=== PATIENT | female | born 1930 | race Caucasian/White ===

== ENCOUNTER 2016-07-15 18:28 | Inpatient (IN) | payer MEDICARE, BC ==
[~2016-07-15] VITALS: Ht 154.9 cm; Wt 61.8 kg
[~2016-07-15 18:28] MED LIST: (None)250 MG OR; AMLODIPINE10 MG PO; AMLODIPINE5 MG OR; AMOXICILLIN500 MG PO; ANTIVERT PO; ATENOLOL50 MG PO; B-12 TR1000 MCG OR; B-6100 MG OR; BABY ASPIRIN81 MG OR; BABY ASPIRIN81 MG PO; BACTRIM DS1 TAB OR; BENADRYL 25MG C25 MG PO; CA CITRATE OR; CARAFATE OR; CARVEDILOL6.25 MG PO; CIPROFLOXACN500 MG OR; D3400 UNIT PO; DARVOCET N-100100 - OR; DIOVAN160 MG PO; DIOVAN40 MG OR; DIOVAN80 MG PO; E 10001000 UNIT OR; EXFORGE1 TA1 OR; FLAGYL500 MG OR; FLORASTOR250 M1 OR; FOLIC ACID400 MC1 OR; GAS-X EXTRA ST125 MG PO; GLYCRON3 MG OR; HUMULIN R1 M1 IV; HYDROCO/APAP1 TA9 OR; KEFLEX500 MG OR; KEFLEX500 MG PO; KLOR-CON 1010 ME1 OR; LASIX 20 MG TAB20 MG PO; LASIX 20 MG20 MG/TAB PO; LASIX 40 MG TAB40 MG PO; LORTAB 5 PO; MAGNESIUM250 M1 OR; MERCAPTOPUR50 MG OR; METHIMAZOLE5 MG PO; MICRO-K10 ME1 PO; MUCINEX600 MG PO; MULTIVITAM11 IV; MULTIVITAMIN OR; NEURONTIN300 MG PO; NOVOLIN R IV; OMEPRAZOLE20 MG PO; POTASSIUM; PREDNISONE10 MG OR; ROBAXIN-750750 MG OR; ROCEPHIN1 G1 IV; SANTYL250 MG/GM EX; SANTYL250 MG/GM INT; SIMVASTATIN20 MG OR; SODIUM CHLORIDE IV; TENORMIN PO; TPN IV; VANCOMYCIN HCL1 GM IV; VITAMIN B 6100 MG OR; VITAMIN C1000 MG OR; XANAX0.25 MG OR; XANAX0.25 MG PO; XANAX0.5 MG PO; [UNRECOGNIZED DRUG - OTHER] IV; [UNRECOGNIZED DRUG - OTHER] OR; [UNRECOGNIZED DRUG - OTHER] PO; [UNRECOGNIZED DRUG - SUPPLY] IV
[2016-07-15 19:40] LABS: INFLUENZA A NONE DETECTED (NONE DETECT); INFLUENZA B NONE DETECTED (NONE DETECT)
[2016-07-15] MEDS ORDERED: HYDROCO/APAP1 TA9 PO (19:42)
[2016-07-15] MEDS ORDERED: DIPHEN/ATROP2.5 MG PO (19:45)
[2016-07-15 19:50] LABS: ALBUMIN 3.3 g/dL (3.2-5.0); ALKALINE PHOSPHATASE 107 u/l (38-126); ANION GAP 17 (6-22 (CALC)); BILIRUBIN, TOTAL 0.6 mg/dL (0.0-1.4); BUN 32 mg/dL (8-23); BUN/CREATININE RATIO 30 (12-20 (CALC)); CALCIUM 8.1 mg/dL (8.4-10.2); CARBON DIOXIDE 23 mmol/l (22-30); CHLORIDE 103 mmol/l (95-108); CREATININE 1.1 mg/dL (0.5-1.0); GFR 47 ML/MIN (>=60 (CALC)); GFR FOR AFR.AMER. 57 ML/MIN (>=60 (CALC)); GLUCOSE 240 mg/dL (82-115); POTASSIUM 4.5 mmol/l (3.5-5.1); SGOT/AST 18 u/l (9-36); SGPT/ALT 29 u/l (11-66); SODIUM 139 mmol/l (137-146); TOTAL PROTEIN 6.5 g/dL (6.3-8.2)
[2016-07-15] MEDS ORDERED: LEVEMIR FL100 UNIT/M SC (19:52)
[2016-07-15 19:54] LABS: HEMATOCRIT 28.4 % (37.0-47.0); IMMATURE GRANULOCYTES 0.7 % (0.0-1.0); MEAN CELL VOLUME 101.1 fL CALC (80.0-100.0); MEAN CORPUSCULAR HGB CONC 31.7 g/L CALC (32.0-36.0); NEUT# 13.94 thou/uL (2.00-7.15); RED BLOOD COUNT 2.81 mill/uL (4.20-5.60); RED CELL DISTRI WIDTH 15.2 % (11.5-15.5)
[2016-07-15 20:01] LABS: MYOGLOBIN 38 ng/mL (0 - 62)
[2016-07-15 21:25] VITALS: BP 107/55
[2016-07-16 03:50] VITALS: BP 124/60
[2016-07-16 05:14] LABS: ANION GAP 11 (6-22 (CALC)); BUN 29 mg/dL (8-23); BUN/CREATININE RATIO 29 (12-20 (CALC)); CALCIUM 7.7 mg/dL (8.4-10.2); CARBON DIOXIDE 27 mmol/l (22-30); CHLORIDE 107 mmol/l (95-108); GFR 53 ML/MIN (>=60 (CALC)); GFR FOR AFR.AMER. > 60 ML/MIN (>=60 (CALC)); GLUCOSE 249 mg/dL (82-115); POTASSIUM 3.8 mmol/l (3.5-5.1); SODIUM 142 mmol/l (137-146)
[2016-07-16 05:35] LABS: HEMATOCRIT 25.4 % (37.0-47.0); HEMOGLOBIN 8.1 g/dl (12.0-16.0); IMMATURE GRANULOCYTES 0.6 % (0.0-1.0); MEAN CORPUSCULAR HGB 32.5 pG CALC (26.0-32.0); MEAN CORPUSCULAR HGB CONC 31.9 g/L CALC (32.0-36.0); NEUT# 9.68 thou/uL (2.00-7.15); RED BLOOD COUNT 2.49 mill/uL (4.20-5.60); RED CELL DISTRI WIDTH 15.4 % (11.5-15.5)
[2016-07-16 08:00] VITALS: BP 157/72
[2016-07-16 12:08] LABS: URINE BILIRUBIN - DIPSTICK NEGATIVE (NEGATIVE); URINE BLOOD DIPSTICK NEGATIVE (NEGATIVE); URINE CLARITY CLEAR; URINE COLOR YELLOW; URINE GLUCOSE - DIPSTICK 500 mg/dL (NEGATIVE); URINE KETONE NEGATIVE (NEGATIVE); URINE LEUK ESTERASE NEGATIVE (NEGATIVE); URINE NITRITE - DIPSTICK NEGATIVE (Negative); URINE PROTEIN - DIPSTICK NEGATIVE (NEG-TRACE); URINE SPECIFIC GRAVITY 1.015; URINE UROBILINOGEN - DIPSTICK 0.2 E.U./dL (0.2)
[2016-07-16 16:53] VITALS: BP 153/77
[2016-07-16 20:00] VITALS: BP 150/79
[2016-07-17 04:32] VITALS: BP 166/76
[2016-07-17 06:12] LABS: ANION GAP 15 (6-22 (CALC)); BUN 20 mg/dL (8-23); BUN/CREATININE RATIO 23 (12-20 (CALC)); CALCIUM 8.4 mg/dL (8.4-10.2); CARBON DIOXIDE 26 mmol/l (22-30); CHLORIDE 104 mmol/l (95-108); CREATININE 0.9 mg/dL (0.5-1.0); GFR 59 ML/MIN (>=60 (CALC)); GFR FOR AFR.AMER. > 60 ML/MIN (>=60 (CALC)); GLUCOSE 267 mg/dL (82-115); POTASSIUM 3.7 mmol/l (3.5-5.1); SODIUM 141 mmol/l (137-146)
[2016-07-17 08:31] VITALS: BP 162/70
[2016-07-17 12:01] LABS: HEMATOCRIT 27.7 % (37.0-47.0); HEMOGLOBIN 8.4 g/dl (12.0-16.0); IMMATURE GRANULOCYTES 1.2 % (0.0-1.0); MEAN CELL VOLUME 104.1 fL CALC (80.0-100.0); MEAN CORPUSCULAR HGB 31.6 pG CALC (26.0-32.0); MEAN CORPUSCULAR HGB CONC 30.3 g/L CALC (32.0-36.0); NEUT# 8.39 thou/uL (2.00-7.15); RED BLOOD COUNT 2.66 mill/uL (4.20-5.60); RED CELL DISTRI WIDTH 15.2 % (11.5-15.5)
[2016-07-17 16:37] VITALS: BP 158/77
[2016-07-17 20:15] VITALS: BP 152/81
[2016-07-18 00:25] VITALS: BP 119/61
[2016-07-18 04:40] VITALS: BP 118/73
[2016-07-18 05:51] LABS: HEMATOCRIT 26.1 % (37.0-47.0); HEMOGLOBIN 8.2 g/dl (12.0-16.0); IMMATURE GRANULOCYTES 1.1 % (0.0-1.0); MEAN CELL VOLUME 100.8 fL CALC (80.0-100.0); MEAN CORPUSCULAR HGB 31.7 pG CALC (26.0-32.0); MEAN CORPUSCULAR HGB CONC 31.4 g/L CALC (32.0-36.0); NEUT# 5.08 thou/uL (2.00-7.15); RED BLOOD COUNT 2.59 mill/uL (4.20-5.60); RED CELL DISTRI WIDTH 14.8 % (11.5-15.5)
[2016-07-18 06:11] LABS: ANION GAP 12 (6-22 (CALC)); BUN 23 mg/dL (8-23); BUN/CREATININE RATIO 24 (12-20 (CALC)); CALCIUM 7.9 mg/dL (8.4-10.2); CARBON DIOXIDE 28 mmol/l (22-30); CHLORIDE 103 mmol/l (95-108); CREATININE 0.9 mg/dL (0.5-1.0); GFR 59 ML/MIN (>=60 (CALC)); GFR FOR AFR.AMER. > 60 ML/MIN (>=60 (CALC)); GLUCOSE 307 mg/dL (82-115); POTASSIUM 3.8 mmol/l (3.5-5.1); SODIUM 140 mmol/l (137-146)
[2016-07-18 08:55] VITALS: BP 138/64
[2016-07-18 09:24] VITALS: BP 138/64
[2016-07-18] MEDS ORDERED: (None)3.5 GM OU (13:37)
[2016-07-18] MEDS ORDERED: LEVAQUIN750 M1 PO (13:38)
== END 2016-07-18 16:00 | disposition home health service (06) | DRG 871 ==
LOC: ENPENDDIS → ED 18:28 → ED-I 20:23 → ED 20:31 → MS2 20:32
PROVIDERS: Emergency Medicine; Internal Medicine; ADMIT Internal Medicine; ATTEND Internal Medicine
PROC: 3E0436Z Introduction of Nutritional Substance into Central Vein, Percutaneous Approach (ICD-10-PCS; principal; 2016-07-16)
DX: A41.9 Sepsis, unspecified organism (principal); J18.9 Pneumonia, unspecified organism; I13.0 Hypertensive heart and chronic kidney disease with heart failure and stage 1 through stage 4 chronic kidney disease, or unspecified chronic kidney disease; K91.2 Postsurgical malabsorption, not elsewhere classified; E11.22 Type 2 diabetes mellitus with diabetic chronic kidney disease; I50.32 Chronic diastolic (congestive) heart failure; N18.3 Chronic kidney disease, stage 3 (moderate); D63.8 Anemia in other chronic diseases classified elsewhere; H10.9 Unspecified conjunctivitis; Z79.4 Long term (current) use of insulin; Z93.3 Colostomy status; Z90.49 Acquired absence of other specified parts of digestive tract